=== PATIENT | female | born 1970 | race American Indian/Alaskan Native ===

== ENCOUNTER 2018-11-27 13:26 | Emergency (ER) | payer MEDICAID ==
--- NOTE | 2018-11-27 14:37 | Event Note ---
ED Screening Note Date of service: 11/27/18 Time: 14:35 ED Screening Note: This is a 47 y.o. F. that presents to the ER with pruritic rash that is generalized. Denies difficulty swallowing. This initial assessment/diagnostic orders/clinical plan/treatment(s) is/are subject to change based on patients health status, clinical progression and re- assessment by fellow clinical providers in the ED. Further treatment and workup at subsequent clinical providers discretion. Patient/guardian urged not to elope from the ED as their condition may be serious if not clinically assessed and managed. Initial orders include:
[2018-11-27 14:40] VITALS: BP 157/86
[2018-11-27] MEDS ORDERED: DECADRON IM ONE (15:23)
--- NOTE | 2018-11-27 15:50 | Emergency Department Report ---
ED Rash HPI - HPI Chief Complaint: Skin Rash Stated Complaint: INSECT BITE Time Seen by Provider: 11/27/18 14:35 Duration: Today Location: Chest, Upper Extremities Suspected Cause: Unknown (states she slipped on the floor last night and this morning was itching. Patient's states that the rash is moving to different areas of her body.) Rash Symptoms: Yes Itching, No Facial Swelling, No Tongue/Oral Swelling, No Breathing Difficulties, No Choking Sensation, No Wheezing/Dyspnea, No Peeling, No Blistering, No Fever ED Review of Systems ROS: Stated complaint: INSECT BITE Other details as noted in HPI Comment: All other systems reviewed and negative ED Past Medical Hx - Past Medical History Previous Medical History?: Yes Hx Hypertension: Yes - Surgical History Past Surgical History?: No - Social History Smoking Status: Never Smoker Substance Use Type: None - Medications Home Medications: Home Medications Medication Instructions Recorded Confirmed Last Taken Type Famotidine [Pepcid] 40 mg PO QHS #7 tablet 11/27/18 Unknown Rx diphenhydrAMINE [Benadryl CAP] 25 mg PO Q8HR PRN #12 capsule 11/27/18 Unknown Rx predniSONE [Deltasone] 20 mg PO QDAY #5 tab 11/27/18 Unknown Rx Rash Exam - Exam General: Vital signs noted. No distress. Alert and acting appropriately. HEENT: No Periorbital Edema, No Conjuctival Injection, No Chemosis, No Perioral Edema, No Tongue Edema, No Uvular Edema, No Compromised Airway, No Drooling Lungs: Yes Good Air Exchange (Normal Breath Sounds), No Wheezes, No Ronchi, No Stridor, No Cough, No Labored Respirations, No Retractions, No Use of Accessory Muscles, No Other Abnormal Lung Sounds Heart: Yes Regular, No Murmur Skin: Yes Urticarial Rash (builatetal arms) Other: Positive: Abdomen Normal, Neurologic Normal, Musculoskeletal Normal ED Course Vital Signs 11/27/18 14:35 Temperature 98.5 F Pulse Rate 94 H Respiratory 16 Rate Blood Pressure 157/86 [Left] O2 Sat by Pulse 99 Oximetry Critical care attestation.: If time is entered above; I have spent that time in minutes in the direct care of this critically ill patient, excluding procedure time. ED Disposition Clinical Impression: Allergic urticaria Disposition: TO HOME OR SELFCARE Is pt being admited?: No Does the pt Need Aspirin: No Condition: Stable Instructions: Urticaria (ED) Referrals: JOHNNA JACKSON MD [Primary Care Provider] - 3-5 Days Time of Disposition: 15:49
== END 2018-11-27 16:00 | disposition home or self-care (01) ==
LOC: ED 13:26
DX: L50.0 Allergic urticaria (principal); I10 Essential (primary) hypertension; Z79.899 Other long term (current) drug therapy
CPT/HCPCS: 96372; 99282; J1100